=== PATIENT | male | born 1970 | race Caucasian/White ===

== ENCOUNTER → 2016-07-18 | Outpatient (CLI) | payer BC ==
[~2016-07-18] MED LIST: IBUP-1050 PO
--- NOTE | 2016-07-18 08:24 | DIAGNOSTIC IMAGING REPORT ---
RIGHT NECK ULTRASONOGRAPHY CLINICAL HISTORY: Adenopathy COMPARISON STUDY: No previous studies for comparison. FINDINGS: Ultrasonic graphic evaluation the right neck revealed a right cervical lymph node at approximately the C2 level measuring 16 x 16 x 8 mm. IMPRESSION: Nonspecific right cervical lymph node measuring 16 x 16 x 8 mm. Clinical follow-up is advocated Electronically signed by: Dar Stewart M.D. 07/18/2016 8:22 AM Dictated Date/Time: 07/18/2016 8:21 AM
== END | disposition home or self-care (01) ==
LOC: C.ULTR 07:56
PROVIDERS: ATTEND Otolaryngology
DX: R59.0 Localized enlarged lymph nodes (principal)

== ENCOUNTER → 2016-07-26 | Outpatient (CLI) | payer BC | END | disposition home or self-care (01) | LOC: C.PATH 08:17 | PROVIDERS: ATTEND Otolaryngology | DX: R59.0 Localized enlarged lymph nodes (principal); J34.2 Deviated nasal septum; J31.0 Chronic rhinitis ==

== ENCOUNTER → 2016-08-04 | Day surgery (SDC) | payer BC ==
[2016-08-03 09:02] VITALS: Ht 182.9 cm; Wt 90.9 kg
--- NOTE | 2016-08-03 12:28 | History and Physical: Surg Cnt ---
History & Physical Date August 03, 2016. Chief Complaint right neck mass History of Present Illness The patient is a 46 year old male with complaints of persistent right neck mass after nondiagnostic needle biopsy Additional History Hepatic Disease: No Endocrine Disorder: No Kidney Disease: No Hypertension: No Heart Disease: No Bleeding Tendencies: No Infectious Diseases: No Allergies Coded Allergies: No Known Allergies (Unverified , 08/03/16) Home Medications No Active Prescriptions or Reported Meds Physical Examination Skin: warm/dry, no rash Eyes: normal inspection, EOMI, sclerae normal ENT: normal ENT inspection, pharynx normal Head: normocephalic, atraumatic Neck: supple, no adenopathy, trachea midline, + pertinent finding (right mid neck node 2 cm.) Respiratory/Chest: lungs clear, normal breath sounds, no respiratory distress Cardiovascular: regular rate, rhythm, no edema, no murmur Abdomen / GI: normal bowel sounds, non tender Back: normal inspection Extremities: normal inspection, normal range of motion Neurologic/Psych: no motor/sensory deficits, alert, normal reflexes, oriented x 3 Diagnosis right neck node Plan of Treatment excision right neck mass
[~2016-08-04] VITALS: Ht 182.9 cm; Wt 90.9 kg
[~2016-08-04] MED LIST changes: +BACITRACIN OINT 15 GM TUBE ONE; -IBUP-1050 PO; +LIDOCAINE/EPINEPHRINE 1% INJ 50 ML VIAL ONE
[2016-08-04 10:10] VITALS: TEMP 36.9
--- NOTE | 2016-08-04 10:33 | History & Physical Bridge Note ---
H&P Re-Evaluation Bridge Note: I have examined the patient, reviewed the History & Physical and in the interval since the performance of the History & Physical I have noted the following changes of clinical significance: No changes noted
--- NOTE | 2016-08-04 11:57 | Discharge Instructions-SurgCtr ---
Discharge Instructions Date of Service August 04, 2016. Visit Reason for Visit: Right Neck Mass Discharge Discharge Diagnosis / Problem: same Discharge Goals Goal(s): Diagnostic testing Activity Recommendations Activity Limitations: resume your previous activity Anesthesia . Post Anesthesia Instructions: If you have had General Anesthesia or IV Sedation: * Do not drive today. * Resume driving when surgeon permits. * Do not make important decisions or sign legal documents today. * Call surgeon for: 1. Temperature elevations greater than 101 degrees F. 2. Uncontrollable pain. 3. Excessive bleeding. 4. Persistent nausea and vomiting. 5. Medication intolerance (nausea, vomiting or rash). * For nausea and vomiting use only clear liquids such as: tea, soda, bouillon until nausea subsides, then gradually increase diet as tolerated. * If you have any concerns or questions, call your surgeon's office. If physician is unavailable and it is an emergency, call 911 or go to the nearest emergency room. . Instructions / Follow-Up Instructions / Follow-Up ACTIVITY: Normal DIET: You may have temporary throat discomfort or difficulty swallowing. This is due to the surgery around your larynx (voice box) and esophagus (swallowing tube). These symptoms will gradually improve over the course of several weeks. Drink and eat foods that can be swallowed easily, e.g. juice, soup, gelatin, applesauce, scrambled eggs or mashed potatoes. You may be able to return to your usual diet in a couple of days. INCISION CARE: You may shower 24 hours after surgery but please do not swim or soak in a tub for at least 2 weeks. After you are done showering, just pat your incision dry. If it is draining clear fluid, you can cover it with a dry dressing (such as gauze). Do NOT scrub with soap or washcloth for the first 10 days. Mild swelling at the incision site will go away in 4-6 weeks. The pink line will slowly fade to white during the next 6-12 months. Use a sunscreen (SPF#30 or higher) or wear a scarf for protection if in the sun for the first 6 months to a year as the sun can darken your scar. You may begin to use a hypoallergenic moisturizing cream (no vitamin E, Mederma , or other scar creams) along the incision after 2 weeks. COMMON PROBLEMS: Numbness of the skin under the chin or above the incision is normal and should go away in a few weeks. You may feel a lump or pressure in your throat sensation when swallowing for a few days. Your incision may feel itchy while it heals. Avoid rubbing or scratching if possible. You may feel neck stiffness, tightness or a pulling feeling. Some people prefer to sleep with an extra pillow for the first few days after the surgery, this helps keep swelling around your incision to a minimum. You do not need to be at bed rest, being active is normally well tolerated within reason. CALL YOUR DOCTOR IF: For any non-urgent questions, call Dr. Nunez office [phone] or the nursing unit where you were a patient. Call Dr. Pulliam [phone] or go to the Emergency Room if you have fever ( temperature greater than 100.5), chills, lightheadedness, shortness of breath, difficulty breathing, nausea, vomiting, numbness or tingling in your fingers, hands, or mouth, muscle spasms, or if you notice signs of wound infection ( redness, tenderness, or drainage from the incision). Please also call or go to the Emergency Room if you have any other urgent concerns. FOLLOW UP VISIT: Follow-up visit with Dr. Pulliam. Please call to schedule if not already scheduled. Diet Recommendations Home Diet: no limitations Procedures Procedures Performed: Right Neck Mass Excision Pending Studies Studies pending at discharge: no Medical Emergencies . Who to Call and When: Medical Emergencies: If at any time you feel your situation is an emergency, please call 911 immediately. . Non-Emergent Contact Non-Emergency issues call your: Primary Care Provider . . "Provider Documentation" section prepared by Bouchra Pulliam. . [place] Drug Monitoring Program Search Results: no issues identified
[2016-08-04 12:04] VITALS: BP 131/88; PULSE 83; O2SAT 98
--- NOTE | 2016-08-04 16:10 | OPERATIVE REPORT ---
DATE OF OPERATION: 08/04/2016 PREOPERATIVE DIAGNOSIS: Right neck lymphnode. POSTOPERATIVE DIAGNOSIS: Lipoma, right neck. SURGEON: Dr. Pulliam. ANESTHESIA: Strict local. COMPLICATIONS: None. BLOOD LOSS: Minimal. PROCEDURE: Excision lipoma, right neck. HISTORY OF PRESENT ILLNESS: A 46-year-old gentleman with a prominent right neck mass noted by the noted on ultrasound. Needle biopsy was nondiagnostic. DESCRIPTION OF PROCEDURE: The patient brought to the operating room, placed in supine position. Local anesthesia of 2% Xylocaine with 1:100,000 strength of epinephrine was injected over the mass in the right mid neck. The incision was made using the 15 blade, carried down through the skin and subcutaneous tissue and then through the platysma layer. The lipoma was encountered and the lipoma was excised sharply using the 15 blade and then using the needle Bovie removing the bottom stalk of the lipoma. The entire polyp glaucoma was sent to pathology. The hemostasis was controlled using the Bovie. The incision was closed with interrupted 4-0 chromic sutures on the platysmal layer and interrupted 5-0 nylon sutures on the skin. The patient tolerated the procedure well and was taken to recovery area in satisfactory condition. I attest to the content of the Intraoperative Record and any orders documented therein. Any exceptio ns are noted below.
== END | disposition home or self-care (01) ==
LOC: X.SURG 09:55
PROVIDERS: ATTEND Otolaryngology
DX: D17.0 Benign lipomatous neoplasm of skin and subcutaneous tissue of head, face and neck (principal)